=== PATIENT | female | born 1960 | race Caucasian/White ===

== ENCOUNTER 2018-01-02 11:24 | Outpatient (CLI) | payer OTHER ==
--- NOTE | 2018-01-02 13:31 | ULT ---
RIGHT UPPER QUADRANT ULTRASOUND: HISTORY: Abdominal pain. FINDINGS: The liver is mildly prominent measuring up to 19 cm. The liver shows a heterogeneous echotexture. T his may represent medical hepatic disease or fatty infiltration. No focal mass identified by ultraso und. The gallbladder appears unremarkable with no evidence of gallstones. The common duct is normal calib er at 4 mm. Pancreas is obscured. The right kidney is imaged and appears unremarkable. IMPRESSION: 1. Liver is mildly enlarged and shows an increased echotexture and is somewhat heterogeneous. Recom mend correlation with liver function tests. 2. Gallbladder appears unremarkable. POS: [facility]
== END 2018-01-02 11:25 | disposition home or self-care (01) ==
LOC: ULT 11:24
PROVIDERS: ATTEND Physician Assistant Medical
DX: R10.84 Generalized abdominal pain (principal); R19.4 Change in bowel habit; R10.13 Epigastric pain; R16.0 Hepatomegaly, not elsewhere classified; R93.2 Abnormal findings on diagnostic imaging of liver and biliary tract; Z80.0 Family history of malignant neoplasm of digestive organs
CPT/HCPCS: 76705

== ENCOUNTER 2019-06-10 10:35 | Outpatient (CLI) | payer OTHER ==
--- NOTE | 2019-06-10 11:40 | MMO ---
Bilateral MAMMO Bilat Screen [facility]. CLINICAL HISTORY: Patient is 58 years old and is seen for screening. The patient has the following family history of breast cancer: mother, at age 75. The patient has no personal history of cancer. VIEWS: The views performed were: bilateral craniocaudal with tomosynthesis and bilateral mediolateral oblique with tomosynthesis. FILMS COMPARED: The present examination has been compared to prior imaging studies performed at [facility] on 05/11/2012, 05/13/2013, 05/20/2014 and 04/25/2015. MAMMOGRAM FINDINGS: There are scattered fibroglandular densities. Finding 1: There is a stable intramammary lymph node seen in the right breast. Finding 2: There are stable benign appearing calcifications seen in both breasts. Finding 3: There is a stable area of skin thickening seen in the right breast. There are no suspicious masses, suspicious calcifications, or new areas of architectural distortion. IMPRESSION: THERE IS NO MAMMOGRAPHIC EVIDENCE OF MALIGNANCY. A ROUTINE FOLLOW-UP MAMMOGRAM IN 1 YEAR IS RECOMMENDED. THE RESULTS OF THIS EXAM WERE SENT TO THE PATIENT. ACR BI-RADS Category 2 - Benign finding MAMMOGRAPHY NOTE: 1. A negative mammogram report should not delay a biopsy if a dominant of clinically suspicious mass is present. 2. Approximately 10% to 15% of breast cancers are not detected by mammography. 3. Adenosis and dense breasts may obscure an underlying neoplasm. Reported by: TATI ALICEA MD Electonically Signed: [id number]
== END 2019-06-10 10:36 | disposition home or self-care (01) ==
LOC: BICMAMMO 10:35
PROVIDERS: ATTEND Family Medicine
DX: Z12.31 Encounter for screening mammogram for malignant neoplasm of breast (principal); Z80.3 Family history of malignant neoplasm of breast
CPT/HCPCS: 77063; 77067

== ENCOUNTER 2019-08-11 17:19 | Observation (INO) | payer OTHER ==
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
[2019-08-11] MEDS ORDERED: Acetaminophen 325 MG TAB ONE (19:06)
[2019-08-11 20:16] LABS: #Basophils 0.1 thou/uL (0.0-0.2); #Eosinphils 0.2 thou/uL (0.0-0.7); #Lymphocytes 1.9 thou/uL (1.20-3.40); #Monocytes 0.6 thou/uL (0.11-0.59); #Neutrophils 6.9 thou/uL (1.40-6.50); %Basophils 0.7 % (0.0-1.0); %Eosinophils 1.6 % (0.0-10.0); %Lymphocytes 19.9 % (21.0-51.0); %Monocytes 5.7 % (0.0-10.0); %Neutrophils 72.1 % (42.0-75.0); Mean Corpuscular HGB CONC 32.7 g/dL (32.0-36.0); Mean Corpuscular Hemoglobin 30.4 pg (27.0-31.0); Mean Corpuscular Volume 93.1 fL (78.0-98.0); Mean Platelet Volume 7.8 fL (7.4-10.4); Platelet Count 227 thou/uL (130-400); RBC Distribution Width 12.5 % (11.5-14.5); Red Blood Cell (RBC) Count 4.92 mill/uL (4.20-5.40); White Blood Cell (WBC) Count 9.6 thou/uL (4.8-10.8)
[2019-08-11 20:33] LABS: ALT (SGPT) 20 U/L (8-55); AST (SGOT) 17 U/L (5-34); Albumin 3.7 g/dL (3.5-5.0); Alkaline Phosphatase 82 U/L (40-110); Anion Gap 15 mmol/L (10-20); BUN (Urea Nitrogen) 17 mg/dL (9.8-20.1); Bilirubin, Total 0.3 mg/dL (0.2-1.2); Calc. Creatinine Clearance 0 mL/min (70-130); Calcium 9.1 mg/dL (7.8-10.44); Carbon Dioxide 22 mmol/L (22-29); Chloride 104 mmol/L (98-107); Estimated GFR-MDRD 66; Globulin 3.3 g/dL (2.4-3.5); Glucose 133 mg/dL (70-105); Potassium 4.1 mmol/L (3.5-5.1); Sodium 137 mmol/L (136-145)
[2019-08-11] MEDS ORDERED: Metoprolol Tartrate 5 MG/5 ML VIAL ONE (22:06)
[2019-08-11 22:25] LABS: Acetaminophen Less than 6.0 mcg/mL (10.0-30.0); Alcohol Less than 10 mg/dL (Less than 10); Salicylate Less than 8.0 mg/dL (15.0-30.0)
[2019-08-11 23:03] LABS: Amphetamine Not Detected (NotDetected); Barbiturates Screen Not Detected (NotDetected); Benzodiazepine Screen Not Detected (NotDetected); Cocaine Metabolite Screen Not Detected (NotDetected); Medtox Control Line Valid? VALID (VALID); Medtox Reader # READER 1; Methadone Not Detected (NotDetected); Methamphetamine Not Detected (NotDetected); Opiate Screen Not Detected (NotDetected); Oxycodone Screen Not Detected (NotDetected); Phencyclidine (PCP) Not Detected (NotDetected); THC/Cannabinoid Screen Not Detected (NotDetected); Tricyclic Screen Not Detected (NotDetected)
[2019-08-11] MEDS ORDERED: Aspirin Chewable 81 MG TAB ONE (23:07)
[2019-08-11 23:22] LABS: Troponin I Less than 0.010 ng/mL (< 0.028)
[2019-08-11] MEDS ORDERED: Nitroglycerin 0.4 MG TAB (25 Tab Bottle) PO PRN (23:40)
[2019-08-11] MEDS ORDERED: Calcium Carbonate 500 MG ChewTAB PO PRN (23:42)
[2019-08-11] MEDS ORDERED: Ondansetron ODT 4 MG TAB PO PRN (23:42)
[2019-08-11] MEDS ORDERED: Acetaminophen 325 MG TAB PO PRN (23:42)
[2019-08-11] MEDS ORDERED: Ondansetron PF 4 MG/2 ML Vial IVP PRN (23:42)
[2019-08-11] MEDS ORDERED: Senokot S 8.6-50 MG TAB PO PRN (23:42)
[2019-08-11] MEDS ORDERED: Metoprolol Tartrate 50 MG TAB PO SCH (23:45)
[2019-08-11] MEDS ORDERED: ALPRAZolam 0.25 MG TAB PO PRN (23:46)
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
[2019-08-12 01:55] VITALS: BMI 36.4
[2019-08-12 06:03] LABS: Troponin I 0.026 ng/mL (< 0.028)
[2019-08-12] MEDS ORDERED: Bupropion 150 MG XL TAB PO SCH (09:00)
[2019-08-12] MEDS ORDERED: Atorvastatin Calcium 10 MG TAB PO SCH (09:00)
[2019-08-12] MEDS ORDERED: Amlodipine 5 MG TAB PO SCH (09:00)
[2019-08-12] MEDS ORDERED: Metoprolol Tartrate 50 MG TAB PO SCH (09:00)
[2019-08-12] MEDS ORDERED: Lisinopril/Hydrochlorothiazide 20 mg/12.5 mg Tablet PO SCH (09:00)
[2019-08-12 15:50] VITALS: BP 143/75; TEMP 98.7
--- NOTE | 2019-08-12 17:25 | DIS ---
DATE OF ADMISSION: 08/11/2019 DATE OF DISCHARGE: 08/12/2019 PRIMARY CARE PROVIDER: Pito Diaz MD DISCHARGE DIAGNOSIS: Sinus tachycardia. CONDITION: Condition of the patient on the day of discharge: Stable. I assessed Ms. Romano on the day of discharge. She denies any chest pain or shortness of breath. Vital signs are stable, heart rate is normal. S1 and S2 are heard, regular. Lungs are clear to auscultation bilaterally. DISCHARGE MEDICATIONS: No change was made to her pre-admission home medications as dictated by Dr. Plascencia in his history and physical note dated August 11, 2019. CONSULTATIONS DURING THIS HOSPITALIZATION: Cardiology, Dr. Jaquez. HOSPITAL COURSE: Ms. Romano is a pleasant 58-year-old lady, who was admitted to [facility] on August 11, 2019, for sinus tachycardia. This is in the context of not being able to take her metoprolol because of GI upset. She received antiemetic medications. She was started on metoprolol. Her heart rate was controlled. She has been seen by Cardiology Service and cleared for discharge home. POST-DISCHARGE FOLLOWUP: The patient is advised to follow up with primary care provider in 3 to 5 days' time and with Cardiology Service in 2 to 3 weeks' time. She has been advised to check her blood pressure and heart rate 3 times a day and show the readings to her primary care provider. Many thanks for allowing me to participate in your patient's care. Please feel free to contact me with any questions or concerns. DISCHARGE DESTINATION: Home. Job ID: [id number]
--- NOTE | 2019-08-13 08:34 | DIS ---
DATE OF ADMISSION: 08/11/2019 DATE OF DISCHARGE: 08/12/2019 FIRST ADDENDUM: Please note that Ms. Romano was unable to tolerate her combination of metoprolol/hydrochlorothiazide medication. This is discontinued. She has been started on metoprolol 50 mg 2 times a day. SECOND ADDENDUM: Ms. Romano's TSH was normal at 1.1568. Cervical spine CT done at the time of admission showed mildly enlarged and somewhat heterogeneous thyroid. There was suggestion of a nodule in the left lobe of thyroid, which was incompletely evaluated. Radiologist recommended elective thyroid ultrasound evaluation. I have advised her to follow up with her primary care provider for the same. Job ID: [id number]
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
== END 2019-08-12 19:23 | disposition home or self-care (01) ==
LOC: ERS 17:19 → 2SW 22:10
PROVIDERS: ADMIT Internal Medicine; ATTEND Internal Medicine
DX: R00.0 Tachycardia, unspecified (principal); R51 Headache; I10 Essential (primary) hypertension; E11.9 Type 2 diabetes mellitus without complications; K21.9 Gastro-esophageal reflux disease without esophagitis; E78.5 Hyperlipidemia, unspecified; F41.9 Anxiety disorder, unspecified; K57.30 Diverticulosis of large intestine without perforation or abscess without bleeding; E04.1 Nontoxic single thyroid nodule; E66.9 Obesity, unspecified; Z68.36 Body mass index [BMI] 36.0-36.9, adult; Z79.84 Long term (current) use of oral hypoglycemic drugs; Z79.899 Other long term (current) drug therapy; V43.52XA Car driver injured in collision with other type car in traffic accident, initial encounter
CPT/HCPCS: 36415; 70450; 72125; 80053; 80306; 80307; 83735; 84443; 84484; 85025; 93005; 96361; 96374; G0378

== ENCOUNTER 2020-03-17 09:10 | Outpatient (CLI) | payer OTHER ==
--- NOTE | 2020-03-17 10:08 | MMO ---
Right Breast MAMMO Unilat Diag [facility]ATT[facility]. CLINICAL HISTORY: Patient is 59 years old and is seen for diagnostic exam and palpable abnormality in the right breast. The patient has the following family history of breast cancer: mother, at age 75. The patient has no personal history of cancer. VIEWS: The views performed were: right craniocaudal with tomosynthesis; right mediolateral oblique with tomosynthesis; and right mediolateral with tomosynthesis. FILMS COMPARED: The present examination has been compared to prior imaging studies performed at [facility] on 05/20/2014, 04/25/2015, 06/10/2019 and 03/17/2020. This study has been interpreted with the assistance of computer-aided detection. MAMMOGRAM FINDINGS: There are scattered fibroglandular densities. Finding 1: There is an oval mass measuring 3 x 4 mm with circumscribed margins seen in the right breast. Mass in skin Finding 2: There are two stable intramammary lymph nodes seen in the right breast. Finding 3: There are stable benign appearing calcifications seen in the right breast. There are no suspicious masses, suspicious calcifications, or new areas of architectural distortion. IMPRESSION: FINDING 1: MASS IN THE RIGHT BREAST IS BENIGN. ULTRASOUND CYSTIC MASS IN SKIN. FINDING 2: STABLE INTRAMAMMARY LYMPH NODES IN THE RIGHT BREAST ARE BENIGN. FINDING 3: STABLE CALCIFICATIONS IN THE RIGHT BREAST ARE BENIGN. A ROUTINE FOLLOW-UP MAMMOGRAM IN 2 MONTHS IS RECOMMENDED. THE RESULTS OF THIS EXAM WERE SENT TO THE PATIENT. ACR BI-RADS Category 2 - Benign finding MAMMOGRAPHY NOTE: 1. A negative mammogram report should not delay a biopsy if a dominant of clinically suspicious mass is present. 2. Approximately 10% to 15% of breast cancers are not detected by mammography. 3. Adenosis and dense breasts may obscure an underlying neoplasm. Reported by: NOMAN MALDONADO MD Electonically Signed: [id number]
--- NOTE | 2020-03-17 12:53 | ULT ---
EXAM: RIGHT BREAST ULTRASOUND: 03/17/20 HISTORY: Patient presents with a palpable finding at 6 o'clock. There is a 0.3 x 0.4 cm diameter cyst which appears to be within the skin or immediate subdermal reg ion which accounts for the palpable finding as well as the mammographic finding. No other significant mass or abnormal mammographic or ultrasound finding demonstrated. IMPRESSION: 0.3 x 0.4 cm diameter cystic mass in the skin or immediate subdermal region probably representing a s ebaceous cyst. This is not within breast parenchyma. BIRADS 2: Benign Finding(s) Routine annual screening mammography (for women over age 40). The patient is due for a bilateral mammogram in two months, May 2020. Follow-up bilateral mammogr am in May 2020 is recommended which is the time for the patient's annular screening exam.
== END 2020-03-17 09:11 | disposition home or self-care (01) ==
LOC: BICMAMMO 09:10
PROVIDERS: ATTEND Internal Medicine
DX: N60.01 Solitary cyst of right breast (principal)
CPT/HCPCS: G0279